=== PATIENT | female | born 1965 | race Caucasian/White ===

== ENCOUNTER 2020-09-15 08:06 | Outpatient (CLI) | payer MEDICARE, MEDICAID ==
--- NOTE | 2020-09-15 17:18 | XRAY Report ---
PROCEDURE: Hand 3 View BILAT INDICATIONS: BILATERAL JOINT PX IN HANDS TECHNIQUE: 3 views of the hand(s) acquired. COMPARISON: None. FINDINGS: Bones: No fractures or dislocations. Osteoarthritic changes throughout bilateral hand and wrist Prominent in bilateral first CMC joints. No definite bony erosion is seen. No suspicious bony lesions . Soft tissues: No suspicious soft tissue calcifications. IMPRESSION: Osteoarthritis throughout bilateral hand and wrist. No acute fracture or dislocation. No gross bony e rosive changes. Reviewed by: Leonardo Robertson MD on 09/15/2020 4:17 PM [facility] Approved by: Leonardo Robertson MD on 09/15/2020 4:17 PM [facility] Station ID: [id number]
== END 2020-09-15 23:59 | disposition home or self-care (01) ==
LOC: DI.N 08:06
PROVIDERS: ATTEND Family Medicine
DX: M19.042 Primary osteoarthritis, left hand (principal); M19.041 Primary osteoarthritis, right hand; M19.032 Primary osteoarthritis, left wrist; M19.031 Primary osteoarthritis, right wrist

== ENCOUNTER 2022-11-10 13:37 | Outpatient (CLI) | payer MEDICARE, MEDICAID ==
[2022-11-10] MEDS ORDERED: ALBUTEROL 1 PUFF INH STA (17:02)
== END 2022-11-10 13:38 | disposition home or self-care (01) ==
LOC: RT 13:37
PROVIDERS: ATTEND Family Medicine
DX: R53.83 Other fatigue (principal); G47.10 Hypersomnia, unspecified; N95.1 Menopausal and female climacteric states; R09.89 Other specified symptoms and signs involving the circulatory and respiratory systems
CPT/HCPCS: 94060

== ENCOUNTER 2022-11-18 13:26 | Outpatient (CLI) | payer MEDICARE, MEDICAID ==
[2022-11-18 14:28] VITALS: BP 146/90
--- NOTE | 2022-11-18 14:28 | SLEEP CARE CONSULTATION ---
Information from patient questionnaire entered by Bettina Lee. I have reviewed and concur with the information entered by Bettina Lee. This document represents the service I personally performed and the decisions made by me, Citlali Navarro ARNP. History of Present Illness Service Date and Time: 11/18/2022 1326 Reason for Visit: New patient Chief Complaint: reports: Insomnia, Unrefreshed sleep, Snoring, Excessive daytime sleepiness, Observed pauses in breathing, Fatigue, Frequent awakenings at night Date of Onset: DECADES Usual bedtime: VARIES BUT MOST RECENTLY BETWEEN 7-9 PM Time it takes to fall asleep: 5 MIN-3 HRS Snores at night: Yes Observed to quit breathing while asleep: Yes (she notices this herself) Sleeps alone due to snoring: No Number of times waking at night: 10-20 Reasons for waking at night: reports: Choking, Snoring, Gasping for air, Pain, Bathroom, Other (UNKNOWN NOISE, SWEATING, FREEZING, LEG CRAMPS, THIRSTY, HUNGRY ) Toss, Turn, or Twitch while sleeping: Yes Recalls having dreams: Yes Usually gets out of bed at: 6AM-4PM; improving with retaking Adderall regularly Feels refreshed in the morning: No Morning headache: Yes (daily; RESOLVES 2-3PM) Sleepy or fatigued during the day: Yes Ever fallen asleep while driving: Yes (drowsy driving, no accidents) Takes day naps: Yes (just laying down due to fatigue and short of breath; not always asleep) Dreams during day naps: Yes Prior sleep studies: Yes ([facility] 2012) Additional HPI information: I had the pleasure of seeing HEIKE HAYES today regarding the possibility of her having a sleep disorder. Her current complaints are excessive daytime sleepiness, fatigue, frequent night awakenings, observed pauses in sleeping, snoring and unrefreshed sleep. She states she snores even when falling asleep and snores loudly. She states she cannot sleep on her back. She will have some sweating at night that soaks her bed. She has to sleep on her side with a TV program until noise, like her snoring. She will then not be able to fall back asleep. She does not feel rested in the mornings and sometimes will stay in bed all day because she is so tired. She was off of her Adderall medication for some time and got so tired all the time that she could not get out of bed. She is back on her Adderall and doing better. - Parasomnia Symptoms Ever been unable to move upon waking from sleep: Yes (couple times a month) Walks in sleep: Yes (has not for a few years) Talks in sleep: Yes Ever acted out dreams in sleep: Yes (kicking in sleep) Ever felt weak in the knees when startled or emotional: Yes (has fallen to ground when startled) Bothered by creepy, crawly, restless sensations in legs: Yes Problems with memory or concentration: Yes (both) Subjective Initial [place] Sleepiness Scale score: 21 (11/18/22) Past Medical History Past Medical History: reports: Claustrophobia, Arthritis, Fibromyalgia, Anxiety, Asthma, Depression, Emphysema, Mood disorder, Attention deficit, Other (RLS, PERIPHREAL NEUROPATHY; severe obstructive airways disease) Social History The patient's occupation is a [employer]. Patient is and lives in . Have you smoked in the past 12 months: Yes Cigarettes per day (20/pack): 20 Years of smokin Quit date: 03/2022 Smoking Pack Years: 29.0 Alcohol use: Yes Alcohol amount and frequency: 2-4OZ COLD BEER 2-3X YR Caffeine use: Yes Caffeine amount and frequency: 2-4 Cups of tea; 4-8 CANS SODA DAILY Family History Family history of sleep disordered breathing: Yes Family Hx Sleep Apnea: Sibling: Snoring Allergies and Home Medications Known drug allergies: Yes (CODEINE) Drug allergies reviewed: Yes Home medication list reviewed: Yes Allergy and home medication list: Medications: Adderall 60 mg Topamax 400 mg Mirapex 1.5 mg daily Review of Systems Weight gain over past 5 years: 70-80 Cardiovascular: reports: high blood pressure, chest pain, leg or foot swelling Respiratory: reports: shortness of breath, wheeze Urinary: reports: frequency, urgency Neurological: reports: headaches, gait or balance problems Psychiatric: reports: Attention Deficit Hyperactivity, anxiety, depression, mood disorder, claustrophobia Ear/Nose/Throat: reports: nasal congestion, nose bleeds, dry mouth/throat Endocrine: reports: sluggishness, too hot or cold, excessive thirst, increased appetite, increased urination, unexplained weakness Musculoskeletal: reports: joint pain, neck pain, back pain, joint swelling, muscle pain or cramping, mobility problems Physical Exam Vital signs obtained and entered by: BETTINA Jose MA Blood Pressure: 146/90 (LEFT ARM) Cuff size: regular (LEFT ARM) Heart Rate: 87 O2 Saturation: 98 Height: 5 ft 3 in Weight: 248 lb 6.4 oz Body Mass Index: 43.9 BMI Classification: Morbidly Obese Neck circumference: 19 Mouth and throat: normal Soft palate: long Hard palate: normal Uvula: normal Uvula visualization: 50% Mallampati Class II Tongue: normal in size Tonsils: small Neck: normal w/o lymphadenopathy or thyromegaly Heart: regular rate and rhythm Lungs: clear bilaterally Impression and Plan 1. Suspected Obstructive Sleep Apnea-Hypopnea Syndrome, as suggested by a history of loud and irregular snoring, observed cessation of breath while asleep, gasping or choking in sleep, morning headache, frequent awakening during the night, unrefreshed sleep, cognitive impairment, and excessive daytime sleepiness. Narrow oropharynx and obesity are common predisposing factors for obstructive sleep apnea-hypopnea syndrome. I recommend proceeding to polysomnography to confirm the diagnosis and to assess severity. If the patient has significant sleep disordered breathing, a manual CPAP titration study will also be performed to find the optimal treatment pressure. I informed the patient of what the sleep studies involve and after some discussion, obtained agreement to proceed. The pathophysiology of obstructive sleep apnea-hypopnea syndrome was discussed with the patient and health risks of cardiovascular and cerebrovascular disease if not treated. Risks of drowsy driving discussed in detail and patient advised to avoid long distance driving and to pullman car clerk at the first sign of drowsiness. Patient agreed to plan. * Schedule polysomnography * Avoid long distance driving or driving when feeling sleepy. * Avoid alcohol, sedative and muscle relaxant around bedtime. * Attempt to lose weight. * Review instructions provided by trained office staff on how to prepare for the sleep study. * Return for follow-up after sleep study completed. Counseling Topics: Weight loss health impact Visit Type: In Office Time Spent with Patient (minutes): 38 Provider Statement: I spent 100% of the Face to Face Visit with the patient with greater than 50% spent counseling the patient and coordination of care.
== END 2022-11-18 13:27 | disposition home or self-care (01) ==
LOC: SC 13:26
PROVIDERS: ATTEND Nurse Practitioner Family
DX: G47.10 Hypersomnia, unspecified (principal); G47.8 Other sleep disorders; R51.9 Headache, unspecified; R41.89 Other symptoms and signs involving cognitive functions and awareness; R06.81 Apnea, not elsewhere classified; R06.83 Snoring; E66.01 Morbid (severe) obesity due to excess calories; Z68.41 Body mass index [BMI] 40.0-44.9, adult
CPT/HCPCS: 99203; G0463; 99212

== ENCOUNTER 2022-12-19 20:36 | Outpatient (CLI) | payer MEDICARE, MEDICAID | END 2022-12-19 20:37 | disposition home or self-care (01) | LOC: SC 20:36 | PROVIDERS: ATTEND Nurse Practitioner Family | DX: G47.33 Obstructive sleep apnea (adult) (pediatric) (principal); E66.9 Obesity, unspecified; Z68.41 Body mass index [BMI] 40.0-44.9, adult | CPT/HCPCS: 95810 ==

== ENCOUNTER 2022-12-27 09:57 | Outpatient (CLI) | payer MEDICARE, MEDICAID ==
[2022-12-27 10:36] VITALS: BP 132/90
--- NOTE | 2022-12-27 10:36 | SLEEP CARE CONSULTATION ---
Information from patient questionnaire entered by Chuyita Lee. I have reviewed and concur with the information entered by Chuyita Lee. This document represents the service I personally performed and the decisions made by me, Citlali Navarro ARNP. History of Present Illness Service Date and Time: 12/27/2022 0957 Initial [place] Sleepiness Scale score: 21 (11/18/22) Current [place] Sleepiness Scale score: 10 (12/27/22) Additional HPI information: HEIKE HAYES returns for follow up and results of the recently performed polysomnography. I explained the pathophysiology behind obstructive sleep apnea. We then spent quite a bit of time discussing different treatment options. For mild obstructive sleep apnea, surgery and oral appliance are alternatives to nasal CPAP therapy but in moderate or severe cases, nasal CPAP is the most effective and reliable treatment. I reviewed the impact of weight changes on sleep apnea and strongly recommended losing weight. After some discussion, the patient opted to go with the nasal CPAP therapy. Nasal autoCPAP set at 4-15 cmH20 will be ordered with rationale explained. A manual titration study will be ordered if unable to find optimal pressure with office adjustments. I explained how CPAP machine works and what to expect when using the machine. Using CPAP every night in order to get used to it was emphasized. Patient advised to put CPAP mask on before getting into bed so as not to fall asleep without CPAP. To assist acclimation to CPAP use, it could also be used for a short time during day while reading or watching TV. The patient was instructed to call the CPAP supplier to discuss any mechanical problem that may occur. If the mask given is uncomfortable or is difficult to keep on through the night even with adjustment, contact the CPAP supplier as many will replace with another mask style if notified before 30 days. If snoring or perceives is not getting enough air or too much air from the machine, notify this office. Patient does not drink alcohol. Patient was cautioned about risks of drowsy driving until sleepiness symptoms resolve. Patient denies drowsy driving. Sleep Study - Results Type of Sleep Study: Polysomnography (COMPLETED 12/19/22) Prior sleep studies: Yes ([facility] 2012) Polysomnography/Home Sleep Study results: IMPRESSION: The quality of the study is good. The patient had normal sleep efficiency. The sleep architecture was abnormal for sleep fragmentation and reduced amount of time spent in REM and slow wave sleep (N3). Respiratory monitoring showed moderate obstructive sleep apnea-hypopnea (AHI = 20.7) associated with frequent arousals, oxyhemoglobin desaturation and mild hypoxia (anny oxygen saturation of 80%). The respiratory events occurred independently of sleep stage and body position (supine AHI = 24.0; non- supine = 20.84). Snore was loud in intensity. There was no significant periodic leg movement of sleep. Cardiac rhythm was normal sinus rhythm without significant arrhythmia. No abnormal behavior (parasomnia) observed during the night. Allergies and Home Medications Known drug allergies: No Drug allergies reviewed: Yes Home medication list reviewed: Yes (no changes) Review of Systems Review of systems same as previous: Yes (no changes) Physical Exam Vital signs obtained and entered by: CHUYITA Jose MA Blood Pressure: 132/90 (LEFT ARM) Cuff size: regular Heart Rate: 92 O2 Saturation: 95 Height: 5 ft 3 in Weight: 244 lb 12.8 oz Body Mass Index: 43.3 BMI Classification: Morbidly Obese Impression and Plan 1. Obstructive Sleep Apnea-Hypopnea Syndrome, moderate, with lowest oxygen saturation of 80%. Obviously this is the cause of the patients symptoms of unrefreshed sleep, and excessive daytime sleepiness. Positive pressure therapy could benefit fibromyalgia, anxiety, depression, mood disorder, asthma, ADD and RLS. As mentioned above, the patient will be started on nasal autoCPAP therapy with pressure set at 4-15 cmH2O. A manual titration study will be completed if unable to find optimal treatment pressure with office adjustments. Compliance guidelines also reviewed. A copy of compliance guidelines will be given for reference at check out. 2. Hypoxemia, mild, with a anny oxygen saturation of 84% and 95.4 minutes spent under 90%. Her baseline oxygen saturation was normal with an average oxygen saturation of 90%. * Nasal auto CPAP therapy, pressure at 4-15 cm H2O. * Attempt to lose weight. * Avoid alcohol consumption near bedtime. * Avoid supine sleep until using CPAP. * The patient is again cautioned about driving until sleepiness completely resolves. * Return one month after CPAP obtained. I will assess response to therapy and compliance at that time. Counseling Topics: Weight loss health impact Visit Type: In Office Time Spent with Patient (minutes): 22 Provider Statement: I spent 100% of the Face to Face Visit with the patient with greater than 50% spent counseling the patient and coordination of care.
== END 2022-12-27 09:58 | disposition home or self-care (01) ==
LOC: SC 09:57
PROVIDERS: ATTEND Nurse Practitioner Family
DX: G47.33 Obstructive sleep apnea (adult) (pediatric) (principal); R09.02 Hypoxemia; E66.01 Morbid (severe) obesity due to excess calories; Z68.41 Body mass index [BMI] 40.0-44.9, adult
CPT/HCPCS: 99213; G0463; 99212